=== PATIENT | female | born 1955 | race Caucasian/White ===

== ENCOUNTER 2016-12-07 10:19 | Outpatient (CLI) | payer OTHER | END 2016-12-07 10:20 | disposition home or self-care (01) | DX: E03.8 Other specified hypothyroidism (principal); E78.5 Hyperlipidemia, unspecified; M25.50 Pain in unspecified joint ==

== ENCOUNTER 2018-02-24 11:34 | Outpatient (CLI) | payer OTHER ==
[2018-02-24 18:35] LABS: ALT ALANINE AMINOTRANSFERASE 32 IU/L (10-60); AST ASPARTATE AMINOTRANSFERASE 34 IU/L (10-42); CHOL/HDL RATIO 4.6 (<4.4); CHOLESTEROL 257 mg/dL; CREATININE 0.7 mg/dL (0.4-1.0); GFR - MDRD 85 (>89); HDL CHOLESTEROL 56 mg/dL; LDL CHOLESTEROL,CALCULATED 177 mg/dL; LDL/HDL RATIO 3.2 (<4.4); VLDL CHOLESTEROL 24 mg/dL
[2018-02-24 18:44] LABS: HB2 TOTAL 14.3 g/dL; HEMOGLOBIN A1C 0.53 g/dL; HEMOGLOBIN A1C % 5.5 % (4.6-6.2); THYROID STIMULATING HORMONE 20.99 uIU/mL (0.34-5.60)
[2018-02-24 18:46] LABS: FREE T4 (FREE THYROXINE) 0.63 ng/dL (0.58-1.64)
== END 2018-02-24 11:35 | disposition home or self-care (01) ==
LOC: LAB.F 11:34
PROVIDERS: ATTEND Internal Medicine Endocrinology, Diabetes & Metabolism
DX: E89.0 Postprocedural hypothyroidism (principal); R73.03 Prediabetes
CPT/HCPCS: 36415; 80061; 82306; 82565; 83036; 83721; 84439; 84443; 84450; 84460; 84481

== ENCOUNTER 2019-10-22 15:04 | Outpatient (CLI) | payer MEDICARE, OTHER ==
[2019-10-22 18:14] LABS: THYROID STIMULATING HORMONE 9.86 uIU/mL (0.34-5.60)
[2019-10-22 18:16] LABS: FREE T4 (FREE THYROXINE) 0.74 ng/dL (0.58-1.64)
== END 2019-10-22 15:05 | disposition home or self-care (01) ==
LOC: LAB.S 15:04
PROVIDERS: ATTEND Internal Medicine Endocrinology, Diabetes & Metabolism
DX: E89.0 Postprocedural hypothyroidism (principal); E55.9 Vitamin D deficiency, unspecified; E78.5 Hyperlipidemia, unspecified
CPT/HCPCS: 36415; 84439; 84443; 84481

== ENCOUNTER 2020-08-01 14:06 | Outpatient (CLI) | payer MEDICARE, OTHER ==
[2020-08-01 20:42] LABS: RHEUMATOID FACTOR NEGATIVE (Negative)
== END 2020-08-01 14:07 | disposition home or self-care (01) ==
LOC: LAB.S 14:06
PROVIDERS: ATTEND Oral Medicinist
DX: M26.69 Other specified disorders of temporomandibular joint (principal)
CPT/HCPCS: 36415; 85651; 86038; 86140; 86430

== ENCOUNTER 2020-08-20 11:57 | Outpatient (CLI) | payer MEDICARE, OTHER ==
[2020-08-20 16:45] LABS: CHOL/HDL RATIO 3.7 (<4.4); CHOLESTEROL 288 mg/dL; HDL CHOLESTEROL 77 mg/dL; LDL CHOLESTEROL,CALCULATED 188 mg/dL; LDL/HDL RATIO 2.4 (<4.4); VLDL CHOLESTEROL 23 mg/dL
[2020-08-20 16:54] LABS: THYROID STIMULATING HORMONE 1.67 uIU/mL (0.34-5.60)
[2020-08-20 16:56] LABS: FREE T3 3.2 pg/mL (2.5-3.9); FREE T4 (FREE THYROXINE) 0.9 ng/dL (0.58-1.64)
[2020-08-20 20:24] LABS: HEMOGLOBIN A1c% 5.7 % (4.27-6.07)
== END 2020-08-20 11:58 | disposition home or self-care (01) ==
LOC: LAB.S 11:57
PROVIDERS: ATTEND Internal Medicine Endocrinology, Diabetes & Metabolism
DX: E03.8 Other specified hypothyroidism (principal); R73.03 Prediabetes; E78.5 Hyperlipidemia, unspecified
CPT/HCPCS: 36415; 80061; 82306; 83036; 83721; 84439; 84443; 84481

== ENCOUNTER 2021-04-28 07:47 | Outpatient (CLI) | payer MEDICARE, OTHER ==
[2021-04-28 15:10] LABS: ALT ALANINE AMINOTRANSFERASE 23 IU/L (10-60); CHOL/HDL RATIO 3.2 (<4.4); CHOLESTEROL 268 mg/dL; CREATININE 0.6 mg/dL (0.4-1.0); GFR - MDRD 100 (>89); HDL CHOLESTEROL 83 mg/dL; LDL CHOLESTEROL,CALCULATED 160 mg/dL; LDL/HDL RATIO 1.9 (<4.4); TRIGLYCERIDES 124 mg/dL; VLDL CHOLESTEROL 25 mg/dL
[2021-04-28 15:11] LABS: THYROID STIMULATING HORMONE 2.44 uIU/mL (0.34-5.60)
[2021-04-28 15:12] LABS: FREE T3 3.26 pg/mL (2.5-3.9)
[2021-04-28 15:13] LABS: FREE T4 (FREE THYROXINE) 0.98 ng/dL (0.58-1.64)
[2021-04-28 20:30] LABS: ESTIMATED AVERAGE GLUCOSE 117 mg/dL (70-100); HEMOGLOBIN A1c% 5.7 % (4.27-6.07)
== END 2021-04-28 07:48 | disposition home or self-care (01) ==
LOC: LAB.S 07:47
PROVIDERS: ATTEND Internal Medicine Endocrinology, Diabetes & Metabolism
DX: E03.8 Other specified hypothyroidism (principal); R73.03 Prediabetes
CPT/HCPCS: 36415; 80061; 82306; 82565; 83036; 83721; 84439; 84443; 84460; 84481

== ENCOUNTER 2022-03-29 10:52 | Outpatient (CLI) | payer MEDICARE, OTHER ==
[2022-03-29 15:40] LABS: ALT ALANINE AMINOTRANSFERASE 22 IU/L (10-60); AST ASPARTATE AMINOTRANSFERASE 29 IU/L (10-42); CHOLESTEROL 246 mg/dL; CREATININE 0.6 mg/dL (0.4-1.0); GFR - MDRD 100 (>89); HDL CHOLESTEROL 82 mg/dL; LDL CHOLESTEROL,CALCULATED 154 mg/dL; LDL/HDL RATIO 1.9 (<4.4); TRIGLYCERIDES 48 mg/dL; VLDL CHOLESTEROL 10 mg/dL
[2022-03-29 15:52] LABS: FREE T3 2.94 pg/mL (2.5-3.9)
[2022-03-29 15:53] LABS: THYROID STIMULATING HORMONE 1.34 uIU/mL (0.34-5.60)
[2022-03-29 15:54] LABS: FREE T4 (FREE THYROXINE) 0.83 ng/dL (0.58-1.64)
[2022-03-29 16:27] LABS: ESTIMATED AVERAGE GLUCOSE 111 mg/dL (70-100); HEMOGLOBIN A1c% 5.5 % (4.27-6.07)
== END 2022-03-29 10:53 | disposition home or self-care (01) ==
LOC: LAB.S 10:52
PROVIDERS: ATTEND Internal Medicine Endocrinology, Diabetes & Metabolism
DX: E03.8 Other specified hypothyroidism (principal); R73.03 Prediabetes
CPT/HCPCS: 36415; 80061; 82306; 82565; 83036; 83721; 84439; 84443; 84450; 84460; 84481

== ENCOUNTER 2023-07-14 14:11 | Outpatient (CLI) | payer MEDICARE, OTHER ==
[2023-07-14 19:38] LABS: ABSOLUTE RETICS # AUTO 0.042 10^6/uL (0.020-0.110); BASOPHILS # (AUTO) 0.1 10^3/uL (0.0-0.1); BASOPHILS % (AUTO) 0.8 %; EOSINOPHILS # (AUTO) 0.1 10^3/uL (0.0-0.7); HCT - HEMATOCRIT 34.9 % (37.0-47.0); HGB - HEMOGLOBIN 11.6 g/dL (12.0-16.0); LYMPHOCYTES # (AUTO) 1.8 10^3/uL (1.5-3.5); LYMPHOCYTES % (AUTO) 28.6 %; MEAN CORPUSCULAR HEMOGLOBIN 33.4 pg (27.0-31.0); MEAN CORPUSCULAR HGB CONC 33.2 g/dL (32.0-36.0); MEAN CORPUSCULAR VOLUME 100.6 fL (81.0-99.0); MEAN PLATELET VOLUME 10.1 fL (7.9-10.8); MONOCYTES # (AUTO) 0.4 10^3/uL (0.0-1.0); NEUTROPHILS # (AUTO) 3.8 10^3/uL (1.5-6.6); NEUTROPHILS % (AUTO) 61.4 %; PLT - PLATELET COUNT 311 10^3/uL (130-450); RED BLOOD COUNT 3.47 10^6/uL (4.20-5.40); RED CELL DISTRIBUTION WIDTH 11.9 % (12.0-15.0); RETICULOCYTE COUNT % (AUTO) 1.21 % (0.5-2.3); WHITE BLOOD COUNT 6.1 x10^3/uL (4.8-10.8)
[2023-07-14 20:14] LABS: FERRITIN 74.8 ng/mL (11.0-306.8)
== END 2023-07-14 14:12 | disposition home or self-care (01) ==
LOC: LAB.S 14:11
PROVIDERS: ATTEND Family Medicine Adult Medicine
DX: E61.1 Iron deficiency (principal)
CPT/HCPCS: 36415; 82728; 83540; 84466; 85025; 85045

== ENCOUNTER 2023-08-11 12:42 | Outpatient (CLI) | payer MEDICARE, OTHER ==
[2023-08-11 14:27] LABS: ABSOLUTE RETICS # AUTO 0.034 10^6/uL (0.020-0.110); BASOPHILS # (AUTO) 0.1 10^3/uL (0.0-0.1); BASOPHILS % (AUTO) 1.2 %; EOSINOPHILS # (AUTO) 0.3 10^3/uL (0.0-0.7); EOSINOPHILS % (AUTO) 4.9 %; HCT - HEMATOCRIT 35.7 % (37.0-47.0); HGB - HEMOGLOBIN 11.6 g/dL (12.0-16.0); MEAN CORPUSCULAR HEMOGLOBIN 33.3 pg (27.0-31.0); MEAN CORPUSCULAR HGB CONC 32.5 g/dL (32.0-36.0); MEAN CORPUSCULAR VOLUME 102.6 fL (81.0-99.0); MEAN PLATELET VOLUME 10.1 fL (7.9-10.8); MONOCYTES # (AUTO) 0.5 10^3/uL (0.0-1.0); MONOCYTES % (AUTO) 8.1 %; NEUTROPHILS # (AUTO) 2.9 10^3/uL (1.5-6.6); NEUTROPHILS % (AUTO) 50.6 %; PLT - PLATELET COUNT 293 10^3/uL (130-450); RED BLOOD COUNT 3.48 10^6/uL (4.20-5.40); RED CELL DISTRIBUTION WIDTH 12.3 % (12.0-15.0); RETICULOCYTE COUNT % (AUTO) 0.98 % (0.5-2.3); WHITE BLOOD COUNT 5.7 x10^3/uL (4.8-10.8)
[2023-08-11 14:47] LABS: ALBUMIN/GLOBULIN RATIO 1.5 (1.0-2.2); BILIRUBIN,TOTAL 0.3 mg/dL (0.2-1.0); CALCIUM 9.1 mg/dL (8.5-10.3); CREATININE 0.5 mg/dL (0.6-1.3); POTASSIUM 3.9 mmol/L (3.5-4.5); TOTAL PROTEIN 6.6 g/dL (6.4-8.9)
[2023-08-11 15:04] LABS: FERRITIN 62.2 ng/mL (11.0-306.8)
== END 2023-08-11 12:43 | disposition home or self-care (01) ==
LOC: LAB.S 12:42
PROVIDERS: ATTEND Internal Medicine
DX: D50.9 Iron deficiency anemia, unspecified (principal)
CPT/HCPCS: 36415; 80053; 82607; 82728; 82746; 83540; 84466; 85025; 85045; 85651

== ENCOUNTER 2023-11-29 13:22 | Outpatient (CLI) | payer MEDICARE, OTHER ==
[2023-11-29 19:53] LABS: HCT - HEMATOCRIT 40.5 % (37.0-47.0); HGB - HEMOGLOBIN 13.3 g/dL (12.0-16.0); MEAN CORPUSCULAR HEMOGLOBIN 32.9 pg (27.0-31.0); MEAN CORPUSCULAR HGB CONC 32.8 g/dL (32.0-36.0); MEAN CORPUSCULAR VOLUME 100.2 fL (81.0-99.0); MEAN PLATELET VOLUME 10.2 fL (7.9-10.8); RED BLOOD COUNT 4.04 10^6/uL (4.20-5.40); WHITE BLOOD COUNT 6.8 x10^3/uL (4.8-10.8)
[2023-11-29 20:12] LABS: ALBUMIN 4.3 g/dL (3.2-5.5); ALBUMIN/GLOBULIN RATIO 1.4 (1.0-2.2); ALKALINE PHOSPHATASE 92 IU/L (42-121); ALT ALANINE AMINOTRANSFERASE 18 IU/L (10-60); AST ASPARTATE AMINOTRANSFERASE 23 IU/L (10-42); BILIRUBIN,TOTAL 0.4 mg/dL (0.2-1.0); BUN - BLOOD UREA NITROGEN 15 mg/dL (6-20); CALCIUM 9.6 mg/dL (8.5-10.3); CARBON DIOXIDE - CO2 31 mmol/L (21-32); CHLORIDE 101 mmol/L (101-111); CREATININE 0.8 mg/dL (0.6-1.3); CRP - C-REACTIVE PROTEIN < 0.5 mg/dL (<0.5); GFR - MDRD 71 (>89); GLUCOSE 95 mg/dL (74-104); POTASSIUM 3.8 mmol/L (3.5-4.5); SODIUM 138 mmol/L (135-145); TOTAL PROTEIN 7.4 g/dL (6.4-8.9)
[2023-12-01 09:10] LABS: HCV AB Non Reactive (Non Reactive)
== END 2023-11-29 13:23 | disposition home or self-care (01) ==
LOC: LAB.S 13:22
PROVIDERS: ATTEND Family Medicine
DX: Z00.00 Encounter for general adult medical examination without abnormal findings (principal); R53.83 Other fatigue
CPT/HCPCS: 36415; 80053; 85027; 85651; 86140; 86803

== ENCOUNTER 2024-02-09 11:53 | Outpatient (CLI) | payer MEDICARE, OTHER | END 2024-02-09 11:54 | disposition home or self-care (01) | LOC: LAB.S 11:53 | PROVIDERS: ATTEND Family Medicine | DX: R53.83 Other fatigue (principal); G62.9 Polyneuropathy, unspecified | CPT/HCPCS: 36415; 82607; 82746; 84207 ==

== ENCOUNTER 2024-06-23 07:00 | Outpatient (CLI) | payer MEDICARE, OTHER ==
[2024-06-23 19:22] LABS: BILIRUBIN,URINE NEGATIVE (NEGATIVE); GLUCOSE, URINE (UA) NEGATIVE (NEGATIVE); KETONES,URINE (UA) NEGATIVE (NEGATIVE); LEUKOCYTE ESTERASE, URINE NEGATIVE (NEGATIVE); NITRITE,URINE NEGATIVE (NEGATIVE); OCCULT BLOOD,URINE NEGATIVE (NEGATIVE); PH,URINE 5.5 PH (5.0-7.5); PROTEIN,URINE NEGATIVE (NEGATIVE); UROBILINOGEN,URINE 0.2 (NORMAL) E.U./dL (NORMAL)
[2024-06-23 19:43] LABS: BACTERIA,URINE None Seen /HPF (None Seen); CLARITY,URINE CLEAR (CLEAR); RBC,URINE 0-5 /HPF (0-5); SQUAMOUS EPITHELIAL CELL,UR RARE Squamous (<= Few); WBC,URINE 0-3 /HPF (0-5)
== END 2024-06-23 23:59 | disposition home or self-care (01) ==
LOC: LAB.S 07:00
PROVIDERS: ATTEND Emergency Medicine
DX: R30.0 Dysuria (principal)
CPT/HCPCS: 81001; 87086

== ENCOUNTER 2024-06-24 16:58 | Emergency (ER) | payer MEDICARE, OTHER ==
--- NOTE | 2024-06-24 17:33 | ED Physician Documentation ---
History of Present Illness - Stated complaint Stated Complaint: DIARRHEA - Chief complaint Chief Complaint: Abd Pain - Additonal information Additional information: Patient is a 68-year-old female not on any blood thinners presents to the [facility] department with diarrhea. She notes symptoms have been going on since 3 AM. She has multiple episodes of diarrhea around this afternoon she began to notice bright red blood in her stool. She has a history of hemorrhoids. She notes that bright red stool is new though and she has not had this for few months now. She notes no straining with bowel movements she is not stooling more than a teaspoon. She denies any recent antibiotic use she denies any recent travel. She notes lower abdominal cramping but no specific pain or unilateral abdominal pain. She has no fevers or chills. She has been able to eat a banana today but has not eaten much else. PD PAST MEDICAL HISTORY - Past Medical History Past Medical History: Yes Neuro: Migraines Endocrine/Autoimmune: HyPOthyroidism GI: Hemorrhoids Musculoskeletal: Chronic back pain - Past Surgical History Past Surgical History: Yes General: Appendectomy /[employer]: Hysterectomy - Allergies Allergies/Adverse Reactions: Allergies Allergy/AdvReac Type Severity Reaction Status Date / Time Iodinated Contrast Media Allergy Anaphylaxis Verified 06/24/24 17:13 - Social History Does the pt smoke?: No Smoking Status: Never smoker Does the pt drink ETOH?: No Does the pt have substance abuse?: No - Immunizations Immunizations are current?: Yes - POLST Patient has POLST: No PD ED PE NORMAL - Vitals Vital signs reviewed: Yes - General General: Alert and oriented X 3 - HEENT HEENT: Atraumatic, Moist mucous membranes - Neck Neck: Supple, no meningeal sign, No JVD - Cardiac Cardiac: RRR, No murmur, No gallop, No rub - Respiratory Respiratory: No respiratory distress, Clear bilaterally - Abdomen Abdomen: Normal bowel sounds, Other (Tenderness to lower abdomen on examination no rebound or guarding. Active bowel sounds on auscultation. No CVA t enderness.) - Female Female : Deferred - Rectal Rectal: Other (Rectal exam performed with director of women's services in room. Patient examination showed no external hemorrhoids no palpable internal hemorrhoids there is bright red blood on examination though.) - Back Back: No CVA TTP - Neuro Eye Opening: Spontaneous Motor: Obeys Commands Verbal: Oriented GCS Score: 15 Results - Vitals Vitals: Vital Signs - 24 hr 06/24/24 06/24/24 17:13 19:20 Temperature 36.5 C Heart Rate 85 84 Respiratory 16 18 Rate Blood Pressure 111/72 131/58 H O2 Saturation 100 98 Oxygen O2 Source Room air - Labs Labs: Laboratory Tests 06/24/24 06/24/24 17:38 17:38 WBC 13.1 H RBC 3.72 L Hgb 12.1 Hct 36.6 L MCV 98.4 MCH 32.5 H MCHC 33.1 RDW 12.5 Plt Count 320 MPV 9.6 Neut # (Auto) 11.3 H Lymph # (Auto) 0.9 L [place] # (Auto) 0.8 Eos # (Auto) 0.0 Baso # (Auto) 0.0 Absolute Nucleated RBC 0.00 Nucleated RBC % 0.0 Sodium 134 L Potassium 3.3 L Chloride 98 L Carbon Dioxide 27 Anion Gap 9.0 BUN 12 Creatinine 0.7 Estimated GFR (MDRD) 83 L Glucose 122 H Calcium 9.4 Magnesium 1.7 Total Bilirubin 0.6 AST 43 H ALT 44 Alkaline Phosphatase 90 Total Protein 7.1 Albumin 4.3 Globulin 2.8 Albumin/Globulin Ratio 1.5 Lipase 12 PD Medical Decision Making - ED course Complexity details: reviewed old records, reviewed results ED course: Patient is a 68-year-old female presenting to the emergency department with diarrhea and abdominal cramping. Symptoms had started around 3 AM this morning and been progressive. She notes more than 10 episodes of stool only about a teaspoon of diarrhea. She notes this afternoon she developed bright red blood in her stool. Patient has history of hemorrhoids. She notes she has not had bright red blood in her stool for a few months though. Patient denies any fevers no recent travel no recent antibiotic use. Patient notes that she ate bananas today but nothing else. No history of abdominal surgeries no urinary symptoms. Labs here in the emergency department show mild leukocytosis but no significant drop in hemoglobin. This appears stable from labs in December. Patient has no significant electrolyte abnormality mild hypokalemia at 3.3 will replace orally here in emergency department. Patient given Bentyl and Zofran for symptoms here in emergency department. She is able to tolerate p.o. shortly after. Discussed with patient she had 1 episode of bright red blood but denies any others after being here in the emergency department. She notes it feels it is slowing down and her lower abdominal pain has resolved. Discussed with patient we will send medications to her pharmacy and she should drink lots of fluids and follow-up brat diet at home. If she develops any fevers worsening abdominal pain nausea vomiting fevers persistent bleeding dizziness lightheadedness or shortness of breath unable to tolerate eating or drinking at home she should return to the emergency department. Patient understands and is agreeable with this plan. Departure - Departure Disposition: , Self Care Clinical Impression: Diarrhea, Hypokalemia Condition: Good Instructions: ED Diet Brat Expanded Inf Td, ED Diet Vomiting Diarrhea Comments: You were seen here in the emergency department for abdominal cramping diarrhea and blood in your stool your workup here was reassuring I replaced your potassium and you need to follow-up brat diet at home including bananas rice applesauce and toast. If you develop any worsening pain any fevers or worsening abdominal cramping you should return to the emergency department. Drink lots of fluids when you return home and you can provide us a stool sample return to the emergency department and we can test it for bacteria or viruses that cause your symptoms. Follow-up with your PCP in 1 week to ensure resolution of symptoms. Forms: PCP List Discharge Date/Time: 06/24/24 19:30
[2024-06-24 17:43] LABS: BASOPHILS % (AUTO) 0.2 %; HCT - HEMATOCRIT 36.6 % (37.0-47.0); HGB - HEMOGLOBIN 12.1 g/dL (12.0-16.0); LYMPHOCYTES # (AUTO) 0.9 10^3/uL (1.5-3.5); LYMPHOCYTES % (AUTO) 6.8 %; MEAN CORPUSCULAR HEMOGLOBIN 32.5 pg (27.0-31.0); MEAN CORPUSCULAR HGB CONC 33.1 g/dL (32.0-36.0); MEAN CORPUSCULAR VOLUME 98.4 fL (81.0-99.0); MEAN PLATELET VOLUME 9.6 fL (7.9-10.8); MONOCYTES # (AUTO) 0.8 10^3/uL (0.0-1.0); MONOCYTES % (AUTO) 6.4 %; NEUTROPHILS # (AUTO) 11.3 10^3/uL (1.5-6.6); NEUTROPHILS % (AUTO) 86.4 %; PLT - PLATELET COUNT 320 10^3/uL (130-450); RED BLOOD COUNT 3.72 10^6/uL (4.20-5.40); RED CELL DISTRIBUTION WIDTH 12.5 % (12.0-15.0); WHITE BLOOD COUNT 13.1 x10^3/uL (4.8-10.8)
[2024-06-24 17:55] LABS: MAGNESIUM 1.7 mg/dL (1.7-2.3)
[2024-06-24] MEDS: ONDANSETRON ODT 4 MG TABLET TL STA (17:57)
[2024-06-24] MEDS: DICYCLOMINE 10 MG CAPSULE PO STA (17:57)
[2024-06-24 18:01] LABS: ALBUMIN 4.3 g/dL (3.2-5.5); ALBUMIN/GLOBULIN RATIO 1.5 (1.0-2.2); BILIRUBIN,TOTAL 0.6 mg/dL (0.2-1.0); CALCIUM 9.4 mg/dL (8.5-10.3); CREATININE 0.7 mg/dL (0.6-1.3); POTASSIUM 3.3 mmol/L (3.5-4.5); TOTAL PROTEIN 7.1 g/dL (6.4-8.9)
[2024-06-24] MEDS: POTASSIUM CHLORIDE 20 MEQ TABLET PO STA (18:24)
[2024-06-24 19:30] VITALS: BP 131/58; O2SAT 98
== END 2024-06-24 19:30 | disposition home or self-care (01) ==
LOC: ED 16:58
DX: R19.7 Diarrhea, unspecified (principal); E87.6 Hypokalemia; E03.9 Hypothyroidism, unspecified; D72.829 Elevated white blood cell count, unspecified
CPT/HCPCS: 36415; 80053; 83690; 83735; 85025; 99283; 99284; A9270; Q0162; 87507